=== PATIENT | male | born 1960 | race Caucasian/White ===

== ENCOUNTER 2016-11-30 12:14 | Inpatient (IN) | payer OTHER ==
[2016-11-30 13:11] VITALS: BMI 24.7
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
[2016-11-30] MEDS ORDERED: guaiFENesin/D-METHORPHAN HB 10 ML UNIT-DOSE CUPS PO PRN (14:59)
[2016-11-30] MEDS ORDERED: P-EPHED 60MG/TRIPROLIDI 2.5MG TABLET PO PRN (14:59)
[2016-11-30] MEDS ORDERED: MAGNESIUM CITRATE 300 ML BOTTLE PO PRN (14:59)
[2016-11-30] MEDS ORDERED: LOPERAMIDE HCL 2 MG CAPSULE PO PRN (14:59)
[2016-11-30] MEDS ORDERED: hydrOXYzine PAMOATE 25 MG CAPSULE (FP) PO PRN (14:59)
[2016-11-30] MEDS ORDERED: MAGNESIUM HYDROX 2400MG/30ML ORAL SUSPENSION 30 ML CUP PO PRN (14:59)
[2016-11-30] MEDS ORDERED: NICOTINE POLACRILEX 2 MG GUM BUC PRN (14:59)
[2016-11-30] MEDS ORDERED: COLLOIDAL OATMEAL 1 BAR EACH TP PRN (15:02)
[2016-11-30] MEDS ORDERED: chlordiazePOXIDE HCL 25 MG CAPSULE PO PRN (15:55)
--- NOTE | 2016-11-30 16:00 | CONSULT ---
[facility] Psychiatric Consult - Data Date of interview: 11/30/16 Admission source: [facility] Identifying data: First admission to [facility] for this 56 y/o male seeking detox treatment for heroin and alcohol dependence.Patient is , a father of five,homeless,unemployed and supported on SSI benefits. Substance Abuse History: - Smoking Cessation. Smoking history: Current every day smoker. Have you smoked in the past 12 months: Yes. Aproximately how many cigarettes per day: 7. Cigars Per Day: 0. Hx Chewing Tobacco Use: No. Initiated information on smoking cessation: Yes. 'Breaking Loose' booklet given : 11/30/16. - Substance & Tx. History. Hx Alcohol Use: Yes. Hx Substance Use : Yes. Substance Use Type: Alcohol, Heroin. Hx Substance Use Treatment: Yes. - Substances Abused. Heroin. Route: Inhalation. Frequency: Daily. Amount used: 4-5 bags. Age of first use: 54. Date of Last Use: 11/30/16. Alcohol- rum/beer. Route: Oral. Frequency: Daily. Amount used: 2 pts./2-3 6 pks. Age of first use: 18. Date of Last Use: 11/29/16. Confirmed by patient. Medical History: Hypertension,arthritis,past history of lens implant (right eye ) and treatment for gonorrhea. Psychiatric History: No history of psychiatric hospitalizations.Diagnosed with MDD.Prescribed zoloft 100 mg/day + gabapentin 300 mg po tid.Mr Smith is followed at the [facility] in the [place] (Dr Russell).Patient denies history of suicide attempts. Physical/Sexual Abuse/Trauma History: Patient denies. Additional Comment: Urine Drug Screen Results: OPI-Opiates.Noted. Mental Status Exam - Mental Status Exam Alert and Oriented to: Time, Place, Person Cognitive Function: Good Patient Appearance: Well Groomed Mood: Hopeful, Euthymic Affect: Appropriate, Normal Range Patient Behavior: Fatigued, Appropriate, Cooperative Speech Pattern: Clear, Appropriate Voice Loudness: Normal Thought Process: Goal Oriented Thought Disorder: Not Present Hallucinations: Denies Suicidal Ideation: Denies Homicidal Ideation: Denies Insight/Judgement: Poor Sleep: Fair Appetite: Good Muscle strength/Tone: Normal Gait/Station: Normal Psychiatric Findings - Problem List ([place] 1, 2,3) (1) Alcohol dependence with withdrawal, uncomplicated Current Visit: Yes Status: Acute (2) Opioid dependence with withdrawal Current Visit: Yes Status: Acute (3) Nicotine dependence Current Visit: Yes Status: Acute Qualifiers: Nicotine product type: cigarettes (4) Substance induced mood disorder Current Visit: Yes Status: Acute (5) Depressive disorder Current Visit: Yes Status: Chronic Comment: History. - Initial Treatment Plan Initial Treatment Plan: Psychoeducation.Detoxification in progress.Medications ( patient's request) : zoloft 100 mg po daily + gabapentin 300 mg po tid.Side effects/benefits discussed with patient.Made aware of risk of sedation ( neurontin) and suicidal ideation/sexual dysfunction.Patient agrees with this careplan.Observation.
[2016-11-30] MEDS ORDERED: METHADONE HCL 10 MG TABLET (FOR DETOX USE ONLY) PO ONE ×2 (16:15→23:00)
[2016-11-30] MEDS: chlordiazePOXIDE HCL 25 MG CAPSULE PO SCH ×2 (17:01→22:12)
[2016-11-30] MEDS: GABAPENTIN 300 MG CAPSULE (FP) PO SCH ×2 (17:01→22:12)
[2016-11-30 19:49] LABS: URINE APPEARANCE CLEAR; URINE BILIRUBIN NEGATIVE (NEGATIVE); URINE BLOOD NEGATIVE (NEGATIVE); URINE COLOR LTYELLOW; URINE GLUCOSE (UA) NEGATIVE (NEGATIVE); URINE KETONE NEGATIVE (NEGATIVE); URINE LEUK ESTERASE NEGATIVE (NEGATIVE); URINE NITRITE NEGATIVE (NEGATIVE); URINE PROTEIN NEGATIVE (NEGATIVE); URINE UROBILINOGEN NEGATIVE E.U./dl (0.2-1.0)
[2016-11-30] MEDS: THIAMINE HCL 100 MG TABLET (FP) PO SCH (22:11)
[2016-11-30] MEDS: NAPROXEN 500 MG TABLET (FP) PO SCH (22:12)
[2016-12-01] MEDS: chlordiazePOXIDE HCL 25 MG CAPSULE PO SCH ×4 (05:19→22:31)
[2016-12-01] MEDS: GABAPENTIN 300 MG CAPSULE (FP) PO SCH ×3 (05:22→22:30)
[2016-12-01] MEDS ORDERED: METHADONE HCL 10 MG TABLET (FOR DETOX USE ONLY) PO SCH (10:00)
--- NOTE | 2016-12-01 10:00 | PN ---
S CIWA - CIWA Score Nausea/Vomitin Muscle Tremors: 2 Anxiety: 2 Agitation: 2 Paroxysmal Sweats: 2 Orientation: 1-Uncertain about Date Tacttile Disturbances: 2-Mild Itch/Numbness/Burn Auditory Disturbances: 0-None Visual Disturbances: 0-None Headache: 0-None Present CIWA-Ar Total Score: 13 BHS COWS - Scale Resting Pulse: 0= [place] 80 or Below Sweatin= Chills/Flushing Restless Observation: 1= Difficult to Sit Still Pupil Size: 1= Pupils >than Normal Bone or Joint Aches: 1= Mild Discomfort Runny Nose/ Eye Tearin= Nasal Congestion GI Upset > 30mins: 1= Stomach Cramp Tremor Observation of Outstretched Hands: 1= Tremor [place], Not Seen Yawning Observation: 0= None Anxiety or Irritability: 0= None Goose Flesh Skin: 0=Smooth Skin COWS Score: 7 BHS Progress Note (SOAP) Subjective: interrupted sleep, sweats, lbp , wants ensure Objective: 12/01/16 10:03 Vital Signs Temp 97.5 F L 12/01/16 06:00 Pulse 66 12/01/16 06:00 Resp 18 12/01/16 06:00 BP 145/66 12/01/16 06:00 Pulse Ox Intake & Output 11/30/16 11/30/16 12/01/16 11:59 23:59 11:59 Weight 168 lb Other: Height 5 ft 9 in Body Mass Index (BMI) 24.7 Weight Measurement Method Standing Scale Laboratory Tests 11/30/16 19:00 Urine Color Ltyellow Urine Appearance Clear Urine pH 6.0 Ur Specific [place] 1.016 Urine Protein Negative Urine Glucose (UA) Negative Urine Ketones Negative Urine Blood Negative Urine Nitrite Negative Urine Bilirubin Negative Urine Urobilinogen Negative Ur Leukocyte Esterase Negative pending labs pt aox3 lying in bed in nad Assessment: 12/01/16 10:03 withdrawal sx;s Plan: cont. detox increase fluids ensure 180ml po bid aveeno soap f/up labs
[2016-12-01] MEDS: PRENATAL VITAMINS W/ FOLIC ACID TABLET (FP) PO SCH (10:25)
[2016-12-01] MEDS: HYDROCHLOROTHIAZIDE 25 MG TABLET (FP) PO SCH (10:25)
[2016-12-01] MEDS: ASPIRIN 81 MG CHEWABLE TABLETS PO SCH (10:25)
[2016-12-01] MEDS: SERTRALINE HCL 50 MG TABLET (FP) PO SCH (10:26)
[2016-12-01] MEDS: NAPROXEN 500 MG TABLET (FP) PO SCH ×2 (10:26→22:31)
[2016-12-01] MEDS: NICOTINE 14 MG/24 HOURS TOPICAL PATCH TD SCH (10:27)
[2016-12-01 10:54] LABS: ALBUMIN 4.3 g/dl (3.4-5.0); ALK PHOS 44 U/L (45-117); ANION GAP 7 (8-16); BILIRUBIN,TOTAL 0.4 mg/dL (0.2-1.0); CALCIUM 9.3 mg/dL (8.5-10.1); CO2 29 mmol/L (21-32); COCKROFT - GAULT 111.13; CREATININE 0.8 mg/dL (0.7-1.3); GLUCOSE,RANDOM 65 mg/dL (74-106); SGOT/AST 28 U/L (15-37); SGPT/ALT 43 U/L (12-78); TOT PROT 7.8 g/dl (6.4-8.2)
[2016-12-01 10:57] LABS: MCH 28.7 pg (25.7-33.7); MCHC 32.5 g/dl (32.0-35.9); MEAN CELL VOLUME 88.3 fl (80-96); MEAN PLT VOLUME 8.8 fl (7.5-11.1); PLATELET COUNT 200 K/MM3 (134-434); RDW 14.1 % (11.9-15.9); WHITE BLOOD COUNT 4.1 K/mm3 (4.0-10.0)
--- NOTE | 2016-12-01 14:30 | EKG ---
Test Reason : Blood Pressure : / mmHG Vent. Rate : 079 BPM Atrial Rate : 079 BPM P-R Int : 158 ms QRS Dur : 078 ms QT Int : 338 ms P-R-T Axes : 054 033 014 degrees QTc Int : 387 ms NORMAL SINUS RHYTHM NORMAL ECG NO PREVIOUS ECGS AVAILABLE Confirmed by LUPE GARCIA, CONCHIS ([id number]) on 12/01/2016 2:30:04 PM Referred By: Confirmed By:CONCHIS ANDRADE MD
[2016-12-01] MEDS: THIAMINE HCL 100 MG TABLET (FP) PO SCH (22:30)
[2016-12-01] MEDS: TOLNAFTATE 1% CREAM 15 GM TUBE TP SCH (22:31)
[2016-12-02] MEDS: GABAPENTIN 300 MG CAPSULE (FP) PO SCH ×3 (06:04→22:06)
[2016-12-02] MEDS: chlordiazePOXIDE HCL 25 MG CAPSULE PO SCH ×2 (06:04→10:13)
--- NOTE | 2016-12-02 09:41 | PN ---
[facility] CIWA - CIWA Score Nausea/Vomitin Muscle Tremors: 2 Anxiety: 3 Agitation: 3 Paroxysmal Sweats: 3 Orientation: 0-Oriented Tacttile Disturbances: 2-Mild Itch/Numbness/Burn Auditory Disturbances: 0-None Visual Disturbances: 0-None Headache: 0-None Present CIWA-Ar Total Score: 15 BHS COWS - Scale Resting Pulse: 0= [place] 80 or Below Sweatin= Chills/Flushing Restless Observation: 1= Difficult to Sit Still Pupil Size: 1= Pupils >than Normal Bone or Joint Aches: 2= Severe Diffuse Aches Runny Nose/ Eye Tearin= Nasal Congestion GI Upset > 30mins: 1= Stomach Cramp Tremor Observation of Outstretched Hands: 1= Tremor [place], Not Seen Yawning Observation: 0= None Anxiety or Irritability: 2=Irritable/Anxious Goose Flesh Skin: 0=Smooth Skin COWS Score: 10 S Progress Note (SOAP) Subjective: interrupted sleep, sweats, irritable feeling withdrawal sx's Objective: 12/02/16 09:39 Vital Signs Temperature 96.8 F L 12/02/16 06:52 Pulse Rate 68 12/02/16 06:52 Respiratory Rate 18 12/02/16 06:52 Blood Pressure 118/71 12/02/16 06:52 O2 Sat by Pulse Oximetry (%) Laboratory Tests 11/30/16 12/01/16 12/01/16 19:00 06:00 06:00 WBC 4.1 RBC 5.06 Hgb 14.5 Hct 44.6 MCV 88.3 MCHC 32.5 RDW 14.1 Plt Count 200 MPV 8.8 Sodium 141 Potassium 4.7 Chloride 105 Carbon Dioxide 29 Anion Gap 7 L BUN 11 Creatinine 0.8 Creat Clearance w eGFR > 60 Random Glucose 65 L Calcium 9.3 Total Bilirubin 0.4 AST 28 ALT 43 Alkaline Phosphatase 44 L Total Protein 7.8 Albumin 4.3 Urine Color Ltyellow Urine Appearance Clear Urine pH 6.0 Ur Specific [place] 1.016 Urine Protein Negative Urine Glucose (UA) Negative Urine Ketones Negative Urine Blood Negative Urine Nitrite Negative Urine Bilirubin Negative Urine Urobilinogen Negative Ur Leukocyte Esterase Negative RPR Titer 12/01/16 06:00 WBC RBC Hgb Hct MCV MCHC RDW Plt Count MPV Sodium Potassium Chloride Carbon Dioxide Anion Gap BUN Creatinine Creat Clearance w eGFR Random Glucose Calcium Total Bilirubin AST ALT Alkaline Phosphatase Total Protein Albumin Urine Color Urine Appearance Urine pH Ur Specific [place] Urine Protein Urine Glucose (UA) Urine Ketones Urine Blood Urine Nitrite Urine Bilirubin Urine Urobilinogen Ur Leukocyte Esterase RPR Titer Nonreactive pt aox3 ambulating ,irritable Assessment: 12/02/16 09:39 withdrawal sx Plan: cont. detox increase fluids clonidine bid
[2016-12-02] MEDS: PRENATAL VITAMINS W/ FOLIC ACID TABLET (FP) PO SCH (10:13)
[2016-12-02] MEDS: METHADONE HCL 5 MG TABLET (FOR DETOX USE ONLY) PO SCH (10:13)
[2016-12-02] MEDS: ASPIRIN 81 MG CHEWABLE TABLETS PO SCH (10:13)
[2016-12-02] MEDS: HYDROCHLOROTHIAZIDE 25 MG TABLET (FP) PO SCH (10:14)
[2016-12-02] MEDS: NAPROXEN 500 MG TABLET (FP) PO SCH ×2 (10:14→22:08)
[2016-12-02] MEDS: SERTRALINE HCL 50 MG TABLET (FP) PO SCH (10:14)
[2016-12-02] MEDS: cloNIDine HCL 0.1 MG TABLET PO SCH ×2 (10:15→22:08)
[2016-12-02] MEDS: NICOTINE 14 MG/24 HOURS TOPICAL PATCH TD SCH (10:15)
[2016-12-02] MEDS: TOLNAFTATE 1% CREAM 15 GM TUBE TP SCH ×2 (10:15→22:08)
[2016-12-02] MEDS: MAG HYDROX/AL HYDROX/SIMETH 30 ML UNIT-DOSE CUP PO PRN (12:39)
[2016-12-02] MEDS: ACETAMINOPHEN 325 MG TABLET (FP) PO PRN (13:37)
[2016-12-02] MEDS: chlordiazePOXIDE 5 MG CAPSULE PO SCH ×2 (17:39→22:07)
[2016-12-02] MEDS: THIAMINE HCL 100 MG TABLET (FP) PO SCH (22:08)
[2016-12-03] MEDS: GABAPENTIN 300 MG CAPSULE (FP) PO SCH ×3 (05:21→22:11)
[2016-12-03] MEDS: chlordiazePOXIDE 5 MG CAPSULE PO SCH ×2 (05:22→10:25)
[2016-12-03] MEDS: PRENATAL VITAMINS W/ FOLIC ACID TABLET (FP) PO SCH (10:26)
[2016-12-03] MEDS: SERTRALINE HCL 50 MG TABLET (FP) PO SCH (10:26)
[2016-12-03] MEDS: METHADONE HCL 5 MG TABLET (FOR DETOX USE ONLY) PO SCH (10:26)
[2016-12-03] MEDS: HYDROCHLOROTHIAZIDE 25 MG TABLET (FP) PO SCH (10:26)
[2016-12-03] MEDS: ASPIRIN 81 MG CHEWABLE TABLETS PO SCH (10:26)
[2016-12-03] MEDS: cloNIDine HCL 0.1 MG TABLET PO SCH ×2 (10:26→22:10)
[2016-12-03] MEDS: NICOTINE 14 MG/24 HOURS TOPICAL PATCH TD SCH (10:27)
[2016-12-03] MEDS: NAPROXEN 500 MG TABLET (FP) PO SCH ×2 (10:27→22:10)
[2016-12-03] MEDS: TOLNAFTATE 1% CREAM 15 GM TUBE TP SCH ×2 (10:28→22:09)
[2016-12-03] MEDS: MAG HYDROX/AL HYDROX/SIMETH 30 ML UNIT-DOSE CUP PO PRN (11:31)
--- NOTE | 2016-12-03 12:40 | PN ---
BHS Progress Note (SOAP) Subjective: Stomach Cramping, Sweating. Objective: PT. A & O X 3, OBSERVED AMBULATING ON UNIT. 12/03/16 12:38 Vital Signs Temperature 97.2 F L 12/03/16 11:56 Pulse Rate 65 12/03/16 11:56 Respiratory Rate 18 12/03/16 11:56 Blood Pressure 101/69 12/03/16 11:56 O2 Sat by Pulse Oximetry (%) Laboratory Last Values WBC 4.1 K/mm3 (4.0-10.0) 12/01/16 06:00 RBC 5.06 M/mm3 (4.00-5.60) 12/01/16 06:00 Hgb 14.5 GM/dL (11.7-16.9) 12/01/16 06:00 Hct 44.6 % (35.4-49) 12/01/16 06:00 MCV 88.3 fl (80-96) 12/01/16 06:00 MCHC 32.5 g/dl (32.0-35.9) 12/01/16 06:00 RDW 14.1 % (11.9-15.9) 12/01/16 06:00 Plt Count 200 K/MM3 (134-434) 12/01/16 06:00 MPV 8.8 fl (7.5-11.1) 12/01/16 06:00 Sodium 141 mmol/L (136-145) 12/01/16 06:00 Potassium 4.7 mmol/L (3.5-5.1) 12/01/16 06:00 Chloride 105 mmol/L (98-107) 12/01/16 06:00 Carbon Dioxide 29 mmol/L (21-32) 12/01/16 06:00 Anion Gap 7 (8-16) L 12/01/16 06:00 BUN 11 mg/dL (7-18) 12/01/16 06:00 Creatinine 0.8 mg/dL (0.7-1.3) 12/01/16 06:00 Creat Clearance w eGFR > 60 (>60) 12/01/16 06:00 Random Glucose 65 mg/dL (74-106) L 12/01/16 06:00 Calcium 9.3 mg/dL (8.5-10.1) 12/01/16 06:00 Total Bilirubin 0.4 mg/dL (0.2-1.0) 12/01/16 06:00 AST 28 U/L (15-37) 12/01/16 06:00 ALT 43 U/L (12-78) 12/01/16 06:00 Alkaline Phosphatase 44 U/L (45-117) L 12/01/16 06:00 Total Protein 7.8 g/dl (6.4-8.2) 12/01/16 06:00 Albumin 4.3 g/dl (3.4-5.0) 12/01/16 06:00 Urine Color Ltyellow 11/30/16 19:00 Urine Appearance Clear 11/30/16 19:00 Urine pH 6.0 (5.0-8.0) 11/30/16 19:00 Ur Specific [place] 1.016 (1.001-1.035) 11/30/16 19:00 Urine Protein Negative (NEGATIVE) 11/30/16 19:00 Urine Glucose (UA) Negative (NEGATIVE) 11/30/16 19:00 Urine Ketones Negative (NEGATIVE) 11/30/16 19:00 Urine Blood Negative (NEGATIVE) 11/30/16 19:00 Urine Nitrite Negative (NEGATIVE) 11/30/16 19:00 Urine Bilirubin Negative (NEGATIVE) 11/30/16 19:00 Urine Urobilinogen Negative E.U./dl (0.2-1.0) 11/30/16 19:00 Ur Leukocyte Esterase Negative (NEGATIVE) 11/30/16 19:00 RPR Titer Nonreactive (NONREACTIVE) 12/01/16 06:00 LABS NOTED. Assessment: 12/03/16 12:39 WITHDRAWAL SYMPTOMS. Plan: CONTINUE DETOX. ADVISED PATIENT TO FOLLOW-UP WITH BUSINESS DEVELOPMENT SPECIALIST / REHAB MEDICAL PROVIDER AFTER DISCHARGE FROM DETOX FOR GENERAL MEDICAL ASSESSMENT AND FOR ABNORMAL ADMISSION LAB VALUES.
[2016-12-03] MEDS: chlordiazePOXIDE HCL 10 MG CAPSULE PO SCH ×2 (17:28→22:11)
[2016-12-03] MEDS: THIAMINE HCL 100 MG TABLET (FP) PO SCH (22:08)
[2016-12-03] MEDS: diphenhydrAMINE HCL 50 MG CAPSULE PO PRN (22:11)
[2016-12-04] MEDS: GABAPENTIN 300 MG CAPSULE (FP) PO SCH ×3 (05:51→22:07)
[2016-12-04] MEDS: chlordiazePOXIDE HCL 10 MG CAPSULE PO SCH ×2 (05:51→10:12)
[2016-12-04] MEDS: MENTHOL/PHENOL 1 EACH UD MM PRN ×3 (08:44→22:07)
[2016-12-04] MEDS ORDERED: METHADONE HCL 10 MG TABLET (FOR DETOX USE ONLY) PO SCH (10:00)
[2016-12-04] MEDS: HYDROCHLOROTHIAZIDE 25 MG TABLET (FP) PO SCH (10:11)
[2016-12-04] MEDS: NAPROXEN 500 MG TABLET (FP) PO SCH ×2 (10:12→22:07)
[2016-12-04] MEDS: TOLNAFTATE 1% CREAM 15 GM TUBE TP SCH (10:12)
[2016-12-04] MEDS: SERTRALINE HCL 50 MG TABLET (FP) PO SCH (10:12)
[2016-12-04] MEDS: PRENATAL VITAMINS W/ FOLIC ACID TABLET (FP) PO SCH (10:12)
[2016-12-04] MEDS: cloNIDine HCL 0.1 MG TABLET PO SCH ×2 (10:12→22:07)
[2016-12-04] MEDS: ASPIRIN 81 MG CHEWABLE TABLETS PO SCH (10:12)
[2016-12-04] MEDS: NICOTINE 14 MG/24 HOURS TOPICAL PATCH TD SCH (10:13)
--- NOTE | 2016-12-04 17:13 | PN ---
S Progress Note (SOAP) Subjective: Tremors only Detox symptom reported by patient today. Objective: PT. A& O X 2 (DISORIENTED ABOUT DAY / DATE). PT. OBSERVED AMBULATING ON UNIT. 12/04/16 17:12 Vital Signs Temperature 97.3 F L 12/04/16 14:31 Pulse Rate 85 12/04/16 14:31 Respiratory Rate 18 12/04/16 14:31 Blood Pressure 116/63 12/04/16 14:31 O2 Sat by Pulse Oximetry (%) Laboratory Last Values WBC 4.1 K/mm3 (4.0-10.0) 12/01/16 06:00 RBC 5.06 M/mm3 (4.00-5.60) 12/01/16 06:00 Hgb 14.5 GM/dL (11.7-16.9) 12/01/16 06:00 Hct 44.6 % (35.4-49) 12/01/16 06:00 MCV 88.3 fl (80-96) 12/01/16 06:00 MCHC 32.5 g/dl (32.0-35.9) 12/01/16 06:00 RDW 14.1 % (11.9-15.9) 12/01/16 06:00 Plt Count 200 K/MM3 (134-434) 12/01/16 06:00 MPV 8.8 fl (7.5-11.1) 12/01/16 06:00 Sodium 141 mmol/L (136-145) 12/01/16 06:00 Potassium 4.7 mmol/L (3.5-5.1) 12/01/16 06:00 Chloride 105 mmol/L (98-107) 12/01/16 06:00 Carbon Dioxide 29 mmol/L (21-32) 12/01/16 06:00 Anion Gap 7 (8-16) L 12/01/16 06:00 BUN 11 mg/dL (7-18) 12/01/16 06:00 Creatinine 0.8 mg/dL (0.7-1.3) 12/01/16 06:00 Creat Clearance w eGFR > 60 (>60) 12/01/16 06:00 Random Glucose 65 mg/dL (74-106) L 12/01/16 06:00 Calcium 9.3 mg/dL (8.5-10.1) 12/01/16 06:00 Total Bilirubin 0.4 mg/dL (0.2-1.0) 12/01/16 06:00 AST 28 U/L (15-37) 12/01/16 06:00 ALT 43 U/L (12-78) 12/01/16 06:00 Alkaline Phosphatase 44 U/L (45-117) L 12/01/16 06:00 Total Protein 7.8 g/dl (6.4-8.2) 12/01/16 06:00 Albumin 4.3 g/dl (3.4-5.0) 12/01/16 06:00 Urine Color Ltyellow 11/30/16 19:00 Urine Appearance Clear 11/30/16 19:00 Urine pH 6.0 (5.0-8.0) 11/30/16 19:00 Ur Specific [place] 1.016 (1.001-1.035) 11/30/16 19:00 Urine Protein Negative (NEGATIVE) 11/30/16 19:00 Urine Glucose (UA) Negative (NEGATIVE) 11/30/16 19:00 Urine Ketones Negative (NEGATIVE) 11/30/16 19:00 Urine Blood Negative (NEGATIVE) 11/30/16 19:00 Urine Nitrite Negative (NEGATIVE) 11/30/16 19:00 Urine Bilirubin Negative (NEGATIVE) 11/30/16 19:00 Urine Urobilinogen Negative E.U./dl (0.2-1.0) 11/30/16 19:00 Ur Leukocyte Esterase Negative (NEGATIVE) 11/30/16 19:00 RPR Titer Nonreactive (NONREACTIVE) 12/01/16 06:00 LABS NOTED. Assessment: 12/04/16 17:13 WITHDRAWAL SYMPTOMS. Plan: CONTINUE DETOX. ADVISED PATIENT TO FOLLOW-UP WITH MICROBIOLOGY SOIL SCIENTIST / REHAB MEDICAL PROVIDER AFTER DISCHARGE FROM DETOX FOR GENERAL MEDICAL ASSESSMENT AND FOR ABNORMAL ADMISSION LAB VALUES.
[2016-12-04] MEDS: ACETAMINOPHEN 325 MG TABLET (FP) PO PRN ×2 (17:53→22:10)
[2016-12-04] MEDS: THIAMINE HCL 100 MG TABLET (FP) PO SCH (22:07)
[2016-12-05] MEDS: TOLNAFTATE 1% CREAM 15 GM TUBE TP SCH ×3 (00:55→22:03)
[2016-12-05] MEDS ORDERED: METHADONE HCL 5 MG TABLET (FOR DETOX USE ONLY) PO SCH (06:00)
[2016-12-05] MEDS: GABAPENTIN 300 MG CAPSULE (FP) PO SCH ×3 (06:33→22:03)
[2016-12-05] MEDS: MENTHOL/PHENOL 1 EACH UD MM PRN (06:37)
--- NOTE | 2016-12-05 10:42 | DS ---
[facility] Detox Discharge Summary Admission Date: 11/30/16 Discharge Date: 12/05/16 - History Present History: Alcohol Dependence, Opioid Dependence Pertinent Past History: Low back pain - Physical Exam Results Vital Signs: Vital Signs Temperature 97.7 F 12/05/16 06:00 Pulse Rate 82 12/05/16 06:00 Respiratory Rate 18 12/05/16 06:00 Blood Pressure 136/73 12/05/16 06:00 O2 Sat by Pulse Oximetry (%) Pertinent Admission Physical Exam Findings: Withdrawal sx. Laboratory Tests 11/30/16 12/01/16 12/01/16 19:00 06:00 06:00 WBC 4.1 RBC 5.06 Hgb 14.5 Hct 44.6 MCV 88.3 MCHC 32.5 RDW 14.1 Plt Count 200 MPV 8.8 Sodium 141 Potassium 4.7 Chloride 105 Carbon Dioxide 29 Anion Gap 7 L BUN 11 Creatinine 0.8 Creat Clearance w eGFR > 60 Random Glucose 65 L Calcium 9.3 Total Bilirubin 0.4 AST 28 ALT 43 Alkaline Phosphatase 44 L Total Protein 7.8 Albumin 4.3 Urine Color Ltyellow Urine Appearance Clear Urine pH 6.0 Ur Specific [place] 1.016 Urine Protein Negative Urine Glucose (UA) Negative Urine Ketones Negative Urine Blood Negative Urine Nitrite Negative Urine Bilirubin Negative Urine Urobilinogen Negative Ur Leukocyte Esterase Negative RPR Titer 12/01/16 06:00 WBC RBC Hgb Hct MCV MCHC RDW Plt Count MPV Sodium Potassium Chloride Carbon Dioxide Anion Gap BUN Creatinine Creat Clearance w eGFR Random Glucose Calcium Total Bilirubin AST ALT Alkaline Phosphatase Total Protein Albumin Urine Color Urine Appearance Urine pH Ur Specific [place] Urine Protein Urine Glucose (UA) Urine Ketones Urine Blood Urine Nitrite Urine Bilirubin Urine Urobilinogen Ur Leukocyte Esterase RPR Titer Nonreactive labs noted - Treatment Hospital Course: Detox Protocol Followed, Detoxed Safely, Responded well, Discharged Condition Good, Rehab Referral Accepted Patient has Accepted a Rehab Referral to: 12 step meetings - Medication Discharge Medications: Ambulatory Orders Aspirin [ASA -] 81 mg PO DAILY 11/30/16 Gabapentin [Neurontin -] 300 mg PO Q8H 11/30/16 Hydrochlorothiazide 25 mg PO DAILY 11/30/16 Naproxen [Naprosyn -] 500 mg PO BID 11/30/16 Sertraline HCl [Zoloft -] 100 mg PO DAILY 11/30/16 Sertraline HCl [Zoloft] 100 mg PO DAILY #30 tablet 11/30/16 - Diagnosis (1) Alcohol dependence with withdrawal, uncomplicated Current Visit: Yes Status: Acute (2) Nicotine dependence Current Visit: Yes Status: Acute Qualifiers: Nicotine product type: cigarettes Substance use status: uncomplicated Qualified Code(s): F17.210 - Nicotine dependence, cigarettes, uncomplicated (3) Opioid dependence with withdrawal Current Visit: Yes Status: Acute (4) Substance induced mood disorder Current Visit: Yes Status: Acute (5) Acute bilateral low back pain Current Visit: Yes Status: Chronic Qualifiers: Sciatica presence: without sciatica Qualified Code(s): M54.5 - Low back pain (6) Depressive disorder Current Visit: Yes Status: Chronic - AMA Did Patient Leave Against Medical Advice: No
[2016-12-05] MEDS ORDERED: LIDOCAINE VISCOUS 2% ORAL/TOP 20 ML UNIT-DOSE CUP MM ONE (11:00)
[2016-12-05] MEDS: PRENATAL VITAMINS W/ FOLIC ACID TABLET (FP) PO SCH (11:23)
[2016-12-05] MEDS: ASPIRIN 81 MG CHEWABLE TABLETS PO SCH (11:23)
[2016-12-05] MEDS: cloNIDine HCL 0.1 MG TABLET PO SCH ×2 (11:23→22:03)
[2016-12-05] MEDS: HYDROCHLOROTHIAZIDE 25 MG TABLET (FP) PO SCH (11:24)
[2016-12-05] MEDS: NAPROXEN 500 MG TABLET (FP) PO SCH ×2 (11:24→22:03)
[2016-12-05] MEDS: SERTRALINE HCL 50 MG TABLET (FP) PO SCH (11:24)
[2016-12-05] MEDS: NICOTINE 14 MG/24 HOURS TOPICAL PATCH TD SCH (11:24)
[2016-12-05] MEDS ORDERED: ONDANSETRON *ODT* 4 MG TABLET SL PRN (14:32)
[2016-12-05] MEDS: LIDOCAINE VISCOUS 2% ORAL/TOP 20 ML UNIT-DOSE CUP MM PRN (17:40)
[2016-12-05] MEDS: diphenhydrAMINE HCL 50 MG CAPSULE PO PRN (22:03)
[2016-12-05] MEDS: THIAMINE HCL 100 MG TABLET (FP) PO SCH (22:03)
[2016-12-06] MEDS: LIDOCAINE VISCOUS 2% ORAL/TOP 20 ML UNIT-DOSE CUP MM PRN (05:11)
[2016-12-06] MEDS: GABAPENTIN 300 MG CAPSULE (FP) PO SCH (05:13)
--- NOTE | 2016-12-06 09:01 | DS ---
[facility] Detox Discharge Summary Admission Date: 11/30/16 Discharge Date: 12/06/16 - History Present History: Alcohol Dependence, Opioid Dependence - Physical Exam Results Vital Signs: Vital Signs Temperature 98.1 F 12/06/16 06:16 Pulse Rate 78 12/06/16 06:16 Respiratory Rate 18 12/06/16 06:16 Blood Pressure 104/65 12/06/16 06:16 O2 Sat by Pulse Oximetry (%) - Treatment Hospital Course: Detox Protocol Followed, Detoxed Safely, Responded well, Discharged Condition Good, Rehab Referral Accepted - Medication Discharge Medications: Ambulatory Orders Aspirin [ASA -] 81 mg PO DAILY 11/30/16 Gabapentin [Neurontin -] 300 mg PO Q8H 11/30/16 Hydrochlorothiazide 25 mg PO DAILY 11/30/16 Naproxen [Naprosyn -] 500 mg PO BID 11/30/16 Sertraline HCl [Zoloft -] 100 mg PO DAILY 11/30/16 Sertraline HCl [Zoloft] 100 mg PO DAILY #30 tablet 11/30/16 - Diagnosis (1) Alcohol dependence with withdrawal, uncomplicated Current Visit: Yes Status: Chronic (2) Nicotine dependence Current Visit: Yes Status: Chronic Qualifiers: Nicotine product type: cigarettes Substance use status: uncomplicated Qualified Code(s): F17.210 - Nicotine dependence, cigarettes, uncomplicated (3) Opioid dependence with withdrawal Current Visit: Yes Status: Chronic (4) Substance induced mood disorder Current Visit: Yes Status: Chronic (5) Acute bilateral low back pain Current Visit: Yes Status: Chronic Qualifiers: Sciatica presence: without sciatica Qualified Code(s): M54.5 - Low back pain (6) Depressive disorder Current Visit: Yes Status: Chronic - AMA Did Patient Leave Against Medical Advice: No
[2016-12-06] MEDS ORDERED: FLUCONAZOLE 100 MG TABLET (UD) PO ONE (09:15)
[2016-12-06 09:19] VITALS: BP 130/76; PULSE 82; TEMP 96.9
[2016-12-06] MEDS ORDERED: CLOTRIMAZOLE 10 MG TROCHE (FP) PO SCH (10:00)
[2016-12-06] MEDS: SERTRALINE HCL 50 MG TABLET (FP) PO SCH (10:19)
[2016-12-06] MEDS: cloNIDine HCL 0.1 MG TABLET PO SCH (10:19)
[2016-12-06] MEDS: PRENATAL VITAMINS W/ FOLIC ACID TABLET (FP) PO SCH (10:19)
[2016-12-06] MEDS: TOLNAFTATE 1% CREAM 15 GM TUBE TP SCH (10:19)
[2016-12-06] MEDS: NAPROXEN 500 MG TABLET (FP) PO SCH (10:19)
[2016-12-06] MEDS: HYDROCHLOROTHIAZIDE 25 MG TABLET (FP) PO SCH (10:19)
[2016-12-06] MEDS: ASPIRIN 81 MG CHEWABLE TABLETS PO SCH (10:20)
[2016-12-06] MEDS: NICOTINE 14 MG/24 HOURS TOPICAL PATCH TD SCH (10:20)
== END 2016-12-06 10:46 | disposition home or self-care (01) | DRG 773 ==
LOC: YASAS 12:14 → Y6N 14:41
PROVIDERS: ADMIT Internal Medicine Addiction Medicine; ATTEND Internal Medicine Addiction Medicine
PROC: HZ2ZZZZ Detoxification Services for Substance Abuse Treatment (ICD-10-PCS; principal; 2016-11-30)
DX: F11.23 Opioid dependence with withdrawal (principal); F10.230 Alcohol dependence with withdrawal, uncomplicated; F17.210 Nicotine dependence, cigarettes, uncomplicated; F19.24 Other psychoactive substance dependence with psychoactive substance-induced mood disorder; F32.9 Major depressive disorder, single episode, unspecified; I10 Essential (primary) hypertension; R76.11 Nonspecific reaction to tuberculin skin test without active tuberculosis; M54.5 Low back pain; Z87.438 Personal history of other diseases of male genital organs; Z79.82 Long term (current) use of aspirin; Z96.1 Presence of intraocular lens
CPT/HCPCS: 36415; 71020-TC; 80053; 81003; 85027; 86593; 93005; 93010

== ENCOUNTER 2017-09-27 12:25 | Inpatient (IN) | payer OTHER ==
[2017-09-27 14:13] VITALS: BMI 29.5
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
[2017-09-27] MEDS ORDERED: P-EPHED 60MG/TRIPROLIDI 2.5MG TABLET PO PRN (15:58)
[2017-09-27] MEDS ORDERED: ACETAMINOPHEN 325 MG TABLET (FP) PO PRN (15:58)
[2017-09-27] MEDS ORDERED: chlordiazePOXIDE HCL 25 MG CAPSULE PO PRN (15:58)
[2017-09-27] MEDS ORDERED: chlordiazePOXIDE HCL 25 MG CAPSULE PO ONE (15:58)
[2017-09-27] MEDS ORDERED: hydrOXYzine PAMOATE 50 MG CAPSULE (FP) PO PRN (15:58)
[2017-09-27] MEDS ORDERED: IBUPROFEN 400 MG TABLET (FP) PO PRN (15:58)
[2017-09-27] MEDS ORDERED: MENTHOL/PHENOL 1 EACH UD MM PRN (15:58)
[2017-09-27] MEDS ORDERED: MAGNESIUM HYDROX 2400MG/30ML ORAL SUSPENSION 30 ML CUP PO PRN (15:58)
[2017-09-27] MEDS ORDERED: MAG HYDROX/AL HYDROX/SIMETH 30 ML UNIT-DOSE CUP PO PRN (15:58)
[2017-09-27] MEDS ORDERED: MAGNESIUM CITRATE 300 ML BOTTLE PO PRN (15:58)
[2017-09-27] MEDS ORDERED: NICOTINE POLACRILEX 4 MG GUM BC PRN (15:58)
[2017-09-27] MEDS ORDERED: guaiFENesin/D-METHORPHAN HB 10 ML UNIT-DOSE CUPS PO PRN (15:58)
[2017-09-27] MEDS ORDERED: LOPERAMIDE HCL 2 MG CAPSULE PO PRN (15:58)
[2017-09-27] MEDS ORDERED: METHADONE HCL 10 MG TABLET (FOR DETOX USE ONLY) PO ONE ×2 (17:00→23:00)
[2017-09-27] MEDS: chlordiazePOXIDE HCL 25 MG CAPSULE PO SCH ×2 (17:47→22:18)
[2017-09-27] MEDS: THIAMINE HCL 100 MG TABLET (FP) PO SCH (22:18)
[2017-09-27 23:40] LABS: URINE APPEARANCE CLEAR; URINE BILIRUBIN NEGATIVE (NEGATIVE); URINE BLOOD NEGATIVE (NEGATIVE); URINE COLOR YELLOW; URINE GLUCOSE (UA) NEGATIVE (NEGATIVE); URINE KETONE NEGATIVE (NEGATIVE); URINE LEUK ESTERASE NEGATIVE (NEGATIVE); URINE NITRITE NEGATIVE (NEGATIVE); URINE PROTEIN NEGATIVE (NEGATIVE); URINE UROBILINOGEN NEGATIVE mg/dL (0.2-1.0)
[2017-09-28] MEDS: chlordiazePOXIDE HCL 25 MG CAPSULE PO SCH ×4 (06:23→22:24)
[2017-09-28 09:58] LABS: HEMATOCRIT 44.3 % (35.4-49); HEMOGLOBIN 13.9 GM/dL (11.7-16.9); MCHC 31.3 g/dl (32.0-35.9); MEAN CELL VOLUME 86.1 fl (80-96); MEAN PLT VOLUME 8.6 fl (7.5-11.1); PLATELET COUNT 206 K/MM3 (134-434); RBC 5.14 M/mm3 (4.00-5.60); RDW 14.3 % (11.9-15.9); WHITE BLOOD COUNT 5.5 K/mm3 (4.0-10.0)
[2017-09-28] MEDS ORDERED: METHADONE HCL 10 MG TABLET (FOR DETOX USE ONLY) PO SCH (10:00)
--- NOTE | 2017-09-28 10:03 | PN ---
[facility] CIWA - CIWA Score Nausea/Vomitin Muscle Tremors: 3 Anxiety: 3 Agitation: 3 Paroxysmal Sweats: 1-Minimal Palms Moist Orientation: 0-Oriented Tacttile Disturbances: 1-Very Mild Itch/Numbness Auditory Disturbances: 1-Very Mild Visual Disturbances: 0-None Headache: 2-Mild CIWA-Ar Total Score: 17 [facility] COWS - Scale Resting Pulse: 1= [place] 81-100 Sweatin= Chills/Flushing Restless Observation: 3= Extraneous Movement Pupil Size: 1= Pupils >than Normal Bone or Joint Aches: 2= Severe Diffuse Aches Runny Nose/ Eye Tearin= Runny Nose/Eyes GI Upset > 30mins: 2= Nausea/Diarrhea Tremor Observation of Outstretched Hands: 2= Slight Tremor Visible Yawning Observation: 1= 1-2x During Session Anxiety or Irritability: 2=Irritable/Anxious Goose Flesh Skin: 0=Smooth Skin COWS Score: 17 [facility] Progress Note (SOAP) Subjective: ALERT,IRRITABLE,ANXIOUS,INTERRUPTED SLEEP,TREMOR,PAIN IN THE BODY AND BACK, TREMOR Objective: 09/28/17 10:01 Vital Signs Temperature 97.4 F L 09/28/17 06:50 Pulse Rate 75 09/28/17 06:50 Respiratory Rate 18 09/28/17 06:50 Blood Pressure 122/69 09/28/17 06:50 O2 Sat by Pulse Oximetry (%) EKG NSR INVERTED T IN 3,AVF NO CHEST PAIN,NO SOB,NO DIZZINESS Laboratory Last Values WBC 5.5 K/mm3 (4.0-10.0) D 09/28/17 07:30 RBC 5.14 M/mm3 (4.00-5.60) 09/28/17 07:30 Hgb 13.9 GM/dL (11.7-16.9) 09/28/17 07:30 Hct 44.3 % (35.4-49) 09/28/17 07:30 MCV 86.1 fl (80-96) 09/28/17 07:30 MCH 27.0 pg (25.7-33.7) 09/28/17 07:30 MCHC 31.3 g/dl (32.0-35.9) L 09/28/17 07:30 RDW 14.3 % (11.9-15.9) 09/28/17 07:30 Plt Count 206 K/MM3 (134-434) 09/28/17 07:30 MPV 8.6 fl (7.5-11.1) 09/28/17 07:30 Urine Color Yellow 09/27/17 20:21 Urine Appearance Clear 09/27/17 20:21 Urine pH 5.0 (5.0-8.0) 09/27/17 20:21 Ur Specific [place] 1.019 (1.001-1.035) 09/27/17 20:21 Urine Protein Negative (NEGATIVE) 09/27/17 20:21 Urine Glucose (UA) Negative (NEGATIVE) 09/27/17 20:21 Urine Ketones Negative (NEGATIVE) 09/27/17 20:21 Urine Blood Negative (NEGATIVE) 09/27/17 20:21 Urine Nitrite Negative (NEGATIVE) 09/27/17 20:21 Urine Bilirubin Negative (NEGATIVE) 09/27/17 20:21 Urine Urobilinogen Negative mg/dL (0.2-1.0) 09/27/17 20:21 Ur Leukocyte Esterase Negative (NEGATIVE) 09/27/17 20:21 LABS PENDING Assessment: 09/28/17 10:03 WITHDRAWAL SYMPTOM Plan: CONTINUE DETOX
[2017-09-28] MEDS: HYDROCHLOROTHIAZIDE 25 MG TABLET (FP) PO SCH (10:25)
[2017-09-28] MEDS: PRENATAL VITAMINS W/ FOLIC ACID TABLET (FP) PO SCH (10:25)
[2017-09-28] MEDS: ASPIRIN 81 MG CHEWABLE TABLETS PO SCH (10:25)
[2017-09-28] MEDS: NICOTINE 21 MG/24 HOURS TOPICAL PATCH TD SCH (10:26)
[2017-09-28 10:34] LABS: CHLORIDE 101 mmol/L (98-107); POTASSIUM 3.5 mmol/L (3.5-5.1); SODIUM 138 mmol/L (136-145)
[2017-09-28 10:43] LABS: ALBUMIN 3.5 g/dl (3.4-5.0); ALK PHOS 41 U/L (45-117); ANION GAP 7 (8-16); BILIRUBIN,TOTAL 0.9 mg/dL (0.2-1.0); BLOOD UREA NITROGEN 16 mg/dL (7-18); CALCIUM 8.4 mg/dL (8.5-10.1); CO2 30 mmol/L (21-32); CREATININE 0.9 mg/dL (0.7-1.3); GLUCOSE,RANDOM 155 mg/dL (74-106); SGOT/AST 11 U/L (15-37); SGPT/ALT 29 U/L (12-78); TOT PROT 6.7 g/dl (6.4-8.2)
--- NOTE | 2017-09-28 11:01 | EKG ---
Test Reason : Blood Pressure : / mmHG Vent. Rate : 079 BPM Atrial Rate : 079 BPM P-R Int : 170 ms QRS Dur : 076 ms QT Int : 378 ms P-R-T Axes : 056 022 -19 degrees QTc Int : 433 ms NORMAL SINUS RHYTHM NONSPECIFIC T WAVE ABNORMALITY ABNORMAL ECG WHEN COMPARED WITH ECG OF 30-NOV-2016 14:55, NONSPECIFIC T WAVE ABNORMALITY, WORSE IN INFERIOR LEADS NONSPECIFIC T WAVE ABNORMALITY NOW EVIDENT IN LATERAL LEADS Confirmed by LUPE GARCIA, CONCHIS ([id number]) on 09/28/2017 11:01:11 AM Referred By: Confirmed By:CONCHIS ANDRADE MD
[2017-09-28] MEDS ORDERED: FLU VACCINE QUAD 60 MCG/0.5 ML (MDV 17-18) IM ONE (12:00)
--- NOTE | 2017-09-28 16:35 | EKG ---
Test Reason : Blood Pressure : / mmHG Vent. Rate : 071 BPM Atrial Rate : 071 BPM P-R Int : 168 ms QRS Dur : 082 ms QT Int : 380 ms P-R-T Axes : 052 032 001 degrees QTc Int : 412 ms NORMAL SINUS RHYTHM NONSPECIFIC T WAVE ABNORMALITY ABNORMAL ECG WHEN COMPARED WITH ECG OF 27-SEP-2017 17:56, NO SIGNIFICANT CHANGE WAS FOUND Confirmed by CONCHIS ANDRADE MD ([id number]) on 09/28/2017 4:35:01 PM Referred By: Confirmed By:CONCHIS ANDRADE MD
[2017-09-28] MEDS: THIAMINE HCL 100 MG TABLET (FP) PO SCH (22:24)
[2017-09-29] MEDS: chlordiazePOXIDE HCL 25 MG CAPSULE PO SCH ×2 (05:13→10:39)
--- NOTE | 2017-09-29 09:06 | CONSULT ---
[facility] Psychiatric Consult - Data Date of interview: 09/29/17 Admission source: [facility] Identifying data: This is 56 years olf divorsed male, unemployed, homeless, on SSI, with a history of alcohol and heroin dependence seeking detoxification for Alcohol, Heroin and Nicotine Substance Abuse History: - Smoking Cessation. Smoking history: Current every day smoker. Have you smoked in the past 12 months: Yes. Aproximately how many cigarettes per day: 7. Cigars Per Day: 0. Hx Chewing Tobacco Use: No. Initiated information on smoking cessation: Yes. 'Breaking Loose' booklet given : 09/27/17. - Substance & Tx. History. Hx Alcohol Use: Yes. Hx Substance Use : Yes. Substance Use Type: Alcohol, Heroin. Hx Substance Use Treatment: Yes ( last detox [facility] 4months ago). - Substances Abused. Alcohol. Route: Oral. Frequency: Daily. Amount used: 8 BEERS. Age of first use: 20. Date of Last Use: 09/27/17. Heroin. Route: Inhalation. Frequency : Daily. Amount used: 2BAGS. Age of first use: 20. Date of Last Use: 09/27/17 Medical History: Denies significant medical history Psychiatric History: Patient reports history of Schizophrenia, reports no psychiatric hospitalization history, reports taking priopr to admission: Risperdal 2mg poqd. Zoloft 100mg po qqd Physical/Sexual Abuse/Trauma History: Denies Additional Comment: Risperdal 2mg poqd. Zoloft 100mg po qqd Mental Status Exam - Mental Status Exam Alert and Oriented to: Person Cognitive Function: Fair Patient Appearance: Unkempt Mood: Suspicious Affect: Constricted Patient Behavior: Cooperative Speech Pattern: Garbled Voice Loudness: Normal Thought Process: Goal Oriented Thought Disorder: Being Controlled Hallucinations: Denies Suicidal Ideation: Denies Homicidal Ideation: Denies Insight/Judgement: Fair Sleep: Difficulty falling asleep Appetite: Fair Muscle strength/Tone: Normal Gait/Station: Normal Additional Comments: Risperdal 2mg poqd. Zoloft 100mg po qqd Psychiatric Findings - Problem List ([place] 1, 2,3) (1) Schizophrenia Current Visit: Yes Status: Suspected (2) Alcohol dependence with withdrawal, uncomplicated Current Visit: Yes Status: Chronic (3) Nicotine dependence Current Visit: Yes Status: Chronic Qualifiers: Nicotine product type: cigarettes Substance use status: uncomplicated Qualified Code(s): F17.210 - Nicotine dependence, cigarettes, uncomplicated (4) Opioid dependence with withdrawal Current Visit: Yes Status: Chronic (5) Depressive disorder Current Visit: No Status: Chronic Comment: History. (6) Substance induced mood disorder Current Visit: No Status: Chronic - Initial Treatment Plan Initial Treatment Plan: Risperdal 2mg poqd. Zoloft 100mg po qqd
--- NOTE | 2017-09-29 10:02 | PN ---
S CIWA - CIWA Score Nausea/Vomitin Muscle Tremors: 3 Anxiety: 3 Agitation: 2 Paroxysmal Sweats: 1-Minimal Palms Moist Orientation: 0-Oriented Tacttile Disturbances: 1-Very Mild Itch/Numbness Auditory Disturbances: 1-Very Mild Visual Disturbances: 0-None Headache: 2-Mild CIWA-Ar Total Score: 16 [facility] COWS - Scale Resting Pulse: 1= [place] 81-100 Sweatin= Chills/Flushing Restless Observation: 3= Extraneous Movement Pupil Size: 1= Pupils >than Normal Bone or Joint Aches: 2= Severe Diffuse Aches Runny Nose/ Eye Tearin= Runny Nose/Eyes GI Upset > 30mins: 2= Nausea/Diarrhea Tremor Observation of Outstretched Hands: 2= Slight Tremor Visible Yawning Observation: 1= 1-2x During Session Anxiety or Irritability: 2=Irritable/Anxious Goose Flesh Skin: 0=Smooth Skin COWS Score: 17 S Progress Note (SOAP) Subjective: ALERT,IRRITABLE,ANXIOUS,INTERRUPTED SLEEP,TREMOR,PAIN IN THE BODY AND BACK Objective: 09/29/17 10:00 Vital Signs Temperature 97.5 F L 09/29/17 06:00 Pulse Rate 88 09/29/17 06:00 Respiratory Rate 18 09/29/17 06:00 Blood Pressure 115/71 09/29/17 06:00 O2 Sat by Pulse Oximetry (%) Laboratory Last Values WBC 5.5 K/mm3 (4.0-10.0) D 09/28/17 07:30 RBC 5.14 M/mm3 (4.00-5.60) 09/28/17 07:30 Hgb 13.9 GM/dL (11.7-16.9) 09/28/17 07:30 Hct 44.3 % (35.4-49) 09/28/17 07:30 MCV 86.1 fl (80-96) 09/28/17 07:30 MCH 27.0 pg (25.7-33.7) 09/28/17 07:30 MCHC 31.3 g/dl (32.0-35.9) L 09/28/17 07:30 RDW 14.3 % (11.9-15.9) 09/28/17 07:30 Plt Count 206 K/MM3 (134-434) 09/28/17 07:30 MPV 8.6 fl (7.5-11.1) 09/28/17 07:30 Sodium 138 mmol/L (136-145) 09/28/17 07:30 Potassium 3.5 mmol/L (3.5-5.1) D 09/28/17 07:30 Chloride 101 mmol/L (98-107) 09/28/17 07:30 Carbon Dioxide 30 mmol/L (21-32) 09/28/17 07:30 Anion Gap 7 (8-16) L 09/28/17 07:30 BUN 16 mg/dL (7-18) D 09/28/17 07:30 Creatinine 0.9 mg/dL (0.7-1.3) 09/28/17 07:30 Creat Clearance w eGFR > 60 (>60) 09/28/17 07:30 Random Glucose 155 mg/dL (74-106) H D 09/28/17 07:30 Calcium 8.4 mg/dL (8.5-10.1) L 09/28/17 07:30 Total Bilirubin 0.9 mg/dL (0.2-1.0) D 09/28/17 07:30 AST 11 U/L (15-37) L D 09/28/17 07:30 ALT 29 U/L (12-78) D 09/28/17 07:30 Alkaline Phosphatase 41 U/L (45-117) L 09/28/17 07:30 Total Protein 6.7 g/dl (6.4-8.2) 09/28/17 07:30 Albumin 3.5 g/dl (3.4-5.0) 09/28/17 07:30 Urine Color Yellow 09/27/17 20:21 Urine Appearance Clear 09/27/17 20:21 Urine pH 5.0 (5.0-8.0) 09/27/17 20:21 Ur Specific [place] 1.019 (1.001-1.035) 09/27/17 20:21 Urine Protein Negative (NEGATIVE) 09/27/17 20:21 Urine Glucose (UA) Negative (NEGATIVE) 09/27/17 20:21 Urine Ketones Negative (NEGATIVE) 09/27/17 20:21 Urine Blood Negative (NEGATIVE) 09/27/17 20:21 Urine Nitrite Negative (NEGATIVE) 09/27/17 20:21 Urine Bilirubin Negative (NEGATIVE) 09/27/17 20:21 Urine Urobilinogen Negative mg/dL (0.2-1.0) 09/27/17 20:21 Ur Leukocyte Esterase Negative (NEGATIVE) 09/27/17 20:21 RPR Titer Nonreactive (NONREACTIVE) 09/28/17 07:30 Assessment: 09/29/17 10:01 WITHDRAWAL SYMPTOM Plan: CONTINUE DETOX,INITIAL GLUCOSE IS 155,FASTING BLOOD GLUCOE IN AM,BGM MONITORING BID
[2017-09-29] MEDS: ASPIRIN 81 MG CHEWABLE TABLETS PO SCH (10:39)
[2017-09-29] MEDS: risperiDONE 2 MG TABLET PO SCH (10:39)
[2017-09-29] MEDS: HYDROCHLOROTHIAZIDE 25 MG TABLET (FP) PO SCH (10:39)
[2017-09-29] MEDS: PRENATAL VITAMINS W/ FOLIC ACID TABLET (FP) PO SCH (10:39)
[2017-09-29] MEDS: SERTRALINE HCL 50 MG TABLET (FP) PO SCH (10:40)
[2017-09-29] MEDS: NICOTINE 21 MG/24 HOURS TOPICAL PATCH TD SCH (10:40)
[2017-09-29] MEDS: METHADONE HCL 5 MG TABLET (FOR DETOX USE ONLY) PO SCH (10:40)
[2017-09-29] MEDS: chlordiazePOXIDE 5 MG CAPSULE PO SCH ×2 (17:36→22:15)
[2017-09-29] MEDS: THIAMINE HCL 100 MG TABLET (FP) PO SCH (22:14)
[2017-09-30] MEDS: chlordiazePOXIDE 5 MG CAPSULE PO SCH ×2 (05:36→10:13)
--- NOTE | 2017-09-30 10:01 | PN ---
[facility] Progress Note (SOAP) Subjective: alert,irritable,anxious,interrupted sleep,tremor Objective: 09/30/17 10:00 Vital Signs Temperature 96.6 F L 09/30/17 06:00 Pulse Rate 85 09/30/17 06:00 Respiratory Rate 18 09/30/17 06:00 Blood Pressure 126/65 09/30/17 06:00 O2 Sat by Pulse Oximetry (%) Assessment: 09/30/17 10:00 withdrawal symptom Plan: continue detox
[2017-09-30] MEDS: PRENATAL VITAMINS W/ FOLIC ACID TABLET (FP) PO SCH (10:13)
[2017-09-30] MEDS: HYDROCHLOROTHIAZIDE 25 MG TABLET (FP) PO SCH (10:13)
[2017-09-30] MEDS: ASPIRIN 81 MG CHEWABLE TABLETS PO SCH (10:13)
[2017-09-30] MEDS: risperiDONE 2 MG TABLET PO SCH (10:13)
[2017-09-30] MEDS: SERTRALINE HCL 50 MG TABLET (FP) PO SCH (10:13)
[2017-09-30] MEDS: METHADONE HCL 5 MG TABLET (FOR DETOX USE ONLY) PO SCH (10:13)
[2017-09-30] MEDS: NICOTINE 21 MG/24 HOURS TOPICAL PATCH TD SCH (10:14)
[2017-09-30] MEDS: chlordiazePOXIDE HCL 10 MG CAPSULE PO SCH ×2 (17:26→22:23)
[2017-09-30] MEDS: THIAMINE HCL 100 MG TABLET (FP) PO SCH (22:22)
[2017-10-01] MEDS: chlordiazePOXIDE HCL 10 MG CAPSULE PO SCH ×2 (05:50→11:00)
[2017-10-01] MEDS ORDERED: METHADONE HCL 10 MG TABLET (FOR DETOX USE ONLY) PO SCH (10:00)
--- NOTE | 2017-10-01 10:20 | PN ---
S Progress Note (SOAP) Subjective: ALERT,IRRITABLE,INTERRUPTED SLEEP Objective: 10/01/17 10:18 Vital Signs Temperature 97.9 F 10/01/17 09:49 Pulse Rate 90 10/01/17 09:49 Respiratory Rate 18 10/01/17 09:49 Blood Pressure 124/75 10/01/17 09:49 O2 Sat by Pulse Oximetry (%) Assessment: 10/01/17 10:18 WITHDRAWAL SYMPTOM Plan: CONTINUE DETOX,DISCHARGE IN AM
[2017-10-01] MEDS: HYDROCHLOROTHIAZIDE 25 MG TABLET (FP) PO SCH (10:35)
[2017-10-01] MEDS: NICOTINE 21 MG/24 HOURS TOPICAL PATCH TD SCH (10:35)
[2017-10-01] MEDS: ASPIRIN 81 MG CHEWABLE TABLETS PO SCH (10:35)
[2017-10-01] MEDS: PRENATAL VITAMINS W/ FOLIC ACID TABLET (FP) PO SCH (10:35)
[2017-10-01] MEDS: risperiDONE 2 MG TABLET PO SCH (10:36)
[2017-10-01] MEDS: SERTRALINE HCL 50 MG TABLET (FP) PO SCH (10:37)
[2017-10-01] MEDS: THIAMINE HCL 100 MG TABLET (FP) PO SCH (22:20)
[2017-10-02] MEDS ORDERED: METHADONE HCL 5 MG TABLET (FOR DETOX USE ONLY) PO SCH (06:00)
[2017-10-02 09:51] VITALS: BP 147/86; PULSE 94; TEMP 96.6
--- NOTE | 2017-10-02 10:18 | DS ---
[facility] Detox Discharge Summary Admission Date: 09/27/17 Discharge Date: 10/02/17 - History Present History: Alcohol Dependence, Opioid Dependence - Physical Exam Results Vital Signs: Vital Signs Temperature 96.6 F L 10/02/17 09:50 Pulse Rate 94 H 10/02/17 09:50 Respiratory Rate 16 10/02/17 09:50 Blood Pressure 147/86 10/02/17 09:50 O2 Sat by Pulse Oximetry (%) Pertinent Admission Physical Exam Findings: withdrawal sx Vital Signs Temperature 96.6 F L 10/02/17 09:50 Pulse Rate 94 H 10/02/17 09:50 Respiratory Rate 16 10/02/17 09:50 Blood Pressure 147/86 10/02/17 09:50 O2 Sat by Pulse Oximetry (%) Vital Signs Temperature 96.6 F L 10/02/17 09:50 Pulse Rate 94 H 10/02/17 09:50 Respiratory Rate 16 10/02/17 09:50 Blood Pressure 147/86 10/02/17 09:50 O2 Sat by Pulse Oximetry (%) Laboratory Last Values WBC 5.5 K/mm3 (4.0-10.0) D 09/28/17 07:30 RBC 5.14 M/mm3 (4.00-5.60) 09/28/17 07:30 Hgb 13.9 GM/dL (11.7-16.9) 09/28/17 07:30 Hct 44.3 % (35.4-49) 09/28/17 07:30 MCV 86.1 fl (80-96) 09/28/17 07:30 MCH 27.0 pg (25.7-33.7) 09/28/17 07:30 MCHC 31.3 g/dl (32.0-35.9) L 09/28/17 07:30 RDW 14.3 % (11.9-15.9) 09/28/17 07:30 Plt Count 206 K/MM3 (134-434) 09/28/17 07:30 MPV 8.6 fl (7.5-11.1) 09/28/17 07:30 Sodium 138 mmol/L (136-145) 09/28/17 07:30 Potassium 3.5 mmol/L (3.5-5.1) D 09/28/17 07:30 Chloride 101 mmol/L (98-107) 09/28/17 07:30 Carbon Dioxide 30 mmol/L (21-32) 09/28/17 07:30 Anion Gap 7 (8-16) L 09/28/17 07:30 BUN 16 mg/dL (7-18) D 09/28/17 07:30 Creatinine 0.9 mg/dL (0.7-1.3) 09/28/17 07:30 Creat Clearance w eGFR > 60 (>60) 09/28/17 07:30 POC Glucometer 109 UNITS (80-120) 10/02/17 05:57 Random Glucose 155 mg/dL (74-106) H D 09/28/17 07:30 Fasting Glucose 89 mg/dL (70-105) 09/30/17 07:30 Calcium 8.4 mg/dL (8.5-10.1) L 09/28/17 07:30 Total Bilirubin 0.9 mg/dL (0.2-1.0) D 09/28/17 07:30 AST 11 U/L (15-37) L D 09/28/17 07:30 ALT 29 U/L (12-78) D 09/28/17 07:30 Alkaline Phosphatase 41 U/L (45-117) L 09/28/17 07:30 Total Protein 6.7 g/dl (6.4-8.2) 09/28/17 07:30 Albumin 3.5 g/dl (3.4-5.0) 09/28/17 07:30 Urine Color Yellow 09/27/17 20:21 Urine Appearance Clear 09/27/17 20:21 Urine pH 5.0 (5.0-8.0) 09/27/17 20:21 Ur Specific [place] 1.019 (1.001-1.035) 09/27/17 20:21 Urine Protein Negative (NEGATIVE) 09/27/17 20:21 Urine Glucose (UA) Negative (NEGATIVE) 09/27/17 20:21 Urine Ketones Negative (NEGATIVE) 09/27/17 20:21 Urine Blood Negative (NEGATIVE) 09/27/17 20:21 Urine Nitrite Negative (NEGATIVE) 09/27/17 20:21 Urine Bilirubin Negative (NEGATIVE) 09/27/17 20:21 Urine Urobilinogen Negative mg/dL (0.2-1.0) 09/27/17 20:21 Ur Leukocyte Esterase Negative (NEGATIVE) 09/27/17 20:21 RPR Titer Nonreactive (NONREACTIVE) 09/28/17 07:30 lab noted - Treatment Hospital Course: Detox Protocol Followed, Detoxed Safely, Responded well, Discharged Condition Good, Rehab Referral Accepted Patient has Accepted a Rehab Referral to: [facility] - Medication Discharge Medications: Ambulatory Orders Naproxen [Naprosyn -] 500 mg PO BID 11/30/16 Sertraline HCl [Zoloft -] 100 mg PO DAILY 11/30/16 Risperidone [Risperdal -] 2 mg PO DAILY #30 tablet 09/29/17 Sertraline HCl [Zoloft] 100 mg PO DAILY #30 tablet 09/29/17 Aspirin [ASA -] 81 mg PO DAILY #30 tab 10/02/17 Gabapentin [Neurontin -] 300 mg PO Q8H #42 capsule 10/02/17 Hydrochlorothiazide 25 mg PO DAILY #30 tab 10/02/17 - Diagnosis (1) Alcohol dependence with withdrawal, uncomplicated Current Visit: Yes Status: Acute (2) Opioid dependence with withdrawal Current Visit: Yes Status: Acute (3) Depressive disorder Current Visit: No Status: Suspected - AMA Did Patient Leave Against Medical Advice: No
== END 2017-10-02 10:00 | disposition home or self-care (01) | DRG 773 ==
LOC: YASAS 12:25 → Y6N 16:29
PROVIDERS: ADMIT Internal Medicine; ATTEND Internal Medicine
PROC: HZ2ZZZZ Detoxification Services for Substance Abuse Treatment (ICD-10-PCS; principal; 2017-09-27)
DX: F11.23 Opioid dependence with withdrawal (principal); F10.230 Alcohol dependence with withdrawal, uncomplicated; F17.210 Nicotine dependence, cigarettes, uncomplicated; F20.0 Paranoid schizophrenia; F32.9 Major depressive disorder, single episode, unspecified; F19.24 Other psychoactive substance dependence with psychoactive substance-induced mood disorder; I10 Essential (primary) hypertension; Z87.438 Personal history of other diseases of male genital organs
CPT/HCPCS: 36415; 71046-TC-FY; 80053; 81003; 82947; 82962; 85027; 86593; 90688; 93005; 93010